=== PATIENT | female | born 2000 | race Caucasian/White ===

== ENCOUNTER 2022-05-01 10:07 | Emergency (ER) | payer OTHER ==
[2022-05-01 10:24] VITALS: BP 110/65; PULSE 77; RESP 18; TEMP 97.9; BMI 22.8
[2022-05-01] MEDS ORDERED: IBUPROFEN 600 MG TABLET (FP) PO ONE ×2 (11:29→11:35)
[2022-05-01] MEDS ORDERED: FLUCONAZOLE 50 MG TABLET PO ONE (11:32)
[2022-05-01] MEDS ORDERED: FLUCONAZOLE 150 MG TABLET PO ONE (11:35)
== END 2022-05-01 11:42 | disposition home or self-care (01) ==
LOC: JER 10:07 → JERFT 10:07
DX: B37.3 Candidiasis of vulva and vagina (principal); K61.0 Anal abscess
CPT/HCPCS: 99283-25

== ENCOUNTER 2022-06-04 21:39 | Emergency (ER) | payer OTHER ==
[2022-06-04 21:47] VITALS: BP 118/81; PULSE 89; RESP 18; TEMP 98.5; BMI 30.1
== END 2022-06-05 00:17 | disposition home or self-care (01) ==
LOC: JER 21:39
DX: L03.011 Cellulitis of right finger (principal)
CPT/HCPCS: 99281-25

== ENCOUNTER 2022-10-27 19:34 | Emergency (ER) | payer OTHER ==
[2022-10-27 19:46] VITALS: BP 108/71; PULSE 88; RESP 18; TEMP 98.4; BMI 30.1
[2022-10-27] MEDS ORDERED: CEPHALEXIN MONOHYDRATE 500 MG CAPSULE (UD) PO ONE (21:41)
[2022-10-27] MEDS ORDERED: CEPHALEXIN MONOHYDRATE 500 MG CAPSULE (UD) ONE (21:42)
== END 2022-10-27 21:44 | disposition home or self-care (01) ==
LOC: JERFT 19:34 → JER 19:34 → JERFT 21:44
PROC: 0H9GXZZ Drainage of Left Hand Skin, External Approach (ICD-10-PCS; principal; 2022-10-27)
DX: L03.312 Cellulitis of back [any part except buttock and flank] (principal)
CPT/HCPCS: 99283-25

== ENCOUNTER 2023-08-24 04:49 | Emergency (ER) | payer OTHER ==
[2023-08-24 05:05] VITALS: RESP 20; TEMP 97.6; BMI 30.1
[2023-08-24 09:41] LABS: BASO % 0.6 % (0-2.0); EOS % 0.1 % (0-4.5); HEMATOCRIT 40.6 % (32.4-45.2); HEMOGLOBIN 13.8 GM/dL (10.7-15.3); LYMPH % 12.3 % (8-40); MCH 29.6 pg (25.7-33.7); MCHC 34.1 g/dl (32.0-36.0); MEAN CELL VOLUME 86.9 fl (80-96); MEAN PLT VOLUME 7.6 fl (7.5-11.1); PLATELET COUNT 485 10^3/uL (134-434); RBC 4.68 M/mm3 (3.60-5.2); RDW 12.8 % (11.6-15.6); WHITE BLOOD COUNT 16.6 K/mm3 (4.0-10.0)
[2023-08-24 09:48] LABS: VENOUS BASE EXCESS -1.6 mmol/L (-2-2); VENOUS O2 SATURATION 67.5 % (70-80); VENOUS PCO2 49.9 mmHg (38-52); VENOUS PH 7.319 (7.310-7.410)
[2023-08-24 09:51] LABS: EPI CELLS >36 /uL (0-25.1); HYALINE CASTS 2 /uL (0-3.1); PH,URINE 5.5 (5.0-8.0); URINE APPEARANCE CLOUDY; URINE BACTERIA 2772 /uL (0-1359); URINE BILIRUBIN NEGATIVE (NEGATIVE); URINE COLOR YELLOW; URINE GLUCOSE (UA) 3+ (NEGATIVE); URINE KETONE TRACE (NEGATIVE); URINE LEUK ESTERASE 2+ (NEGATIVE); URINE NITRITE NEGATIVE (NEGATIVE); URINE PROTEIN TRACE (NEGATIVE); URINE RBC 146 /uL (0-23.9); URINE UROBILINOGEN 0.2 mg/dL (0.2-1.0); URINE WBC 406 /uL (0-25.8)
[2023-08-24 09:52] LABS: POTASSIUM 3.3 mmol/L (3.5-5.1)
[2023-08-24 09:56] LABS: ALBUMIN 3.8 g/dl (3.4-5.0); BLOOD UREA NITROGEN 15.5 mg/dL (7-18)
[2023-08-24 09:59] LABS: CREATININE 0.6 mg/dL (0.55-1.3)
[2023-08-24] MEDS ORDERED: FLUCONAZOLE 50 MG TABLET PO ONE (10:00)
[2023-08-24 10:01] LABS: BILIRUBIN,TOTAL 0.4 mg/dL (0.2-1); CALCIUM 9.7 mg/dL (8.5-10.1)
[2023-08-24] MEDS ORDERED: FLUCONAZOLE 150 MG TABLET PO ONE (11:01)
[2023-08-24] MEDS ORDERED: CEFTRIAXONE 1 GM in DEXTROSE 5%-WATER - 100 ML IVPB ONE (11:35)
[2023-08-24] MEDS ORDERED: CEFTRIAXONE 1 GM/50 ML BAG ONE (11:51)
[2023-08-24 12:12] LABS: HIV INTERPRETATION NEGATIVE (NEGATIVE)
[2023-08-24 15:02] VITALS: BP 118/78; PULSE 96
== END 2023-08-24 14:58 | disposition home or self-care (01) ==
LOC: JER 04:49
DX: R20.0 Anesthesia of skin (principal); R20.2 Paresthesia of skin; E11.9 Type 2 diabetes mellitus without complications
CPT/HCPCS: 36415; 80053; 81003; 82010; 82803; 82962; 85025; 86705; 86707; 86780; 87070; 87077; 87086; 87205; 87350; 87389; 87491; 87517; 87591; 87661; 99284-25

== ENCOUNTER 2023-10-18 13:05 | Emergency (ER) | payer OTHER ==
[2023-10-18 13:12] VITALS: BP 107/66; PULSE 96; RESP 18; TEMP 98.9; BMI 31.5
[2023-10-18] MEDS ORDERED: IBUPROFEN 600 MG TABLET (FP) PO ONE (16:19)
[2023-10-18] MEDS ORDERED: CLINDAMYCIN HCL 150 MG CAPSULE (FP) ONE (16:19)
[2023-10-18] MEDS: CLINDAMYCIN HCL 300 MG CAPSULE PO ONE (16:26)
[2023-10-18] MEDS: IBUPROFEN 600 MG TABLET (FP) PO ONE (16:26)
== END 2023-10-18 17:05 | disposition home or self-care (01) ==
LOC: JERFT 13:05
PROC: 0U9MX0Z Drainage of Vulva with Drainage Device, External Approach (ICD-10-PCS; principal; 2023-10-18)
DX: N75.0 Cyst of Bartholin's gland (principal)
CPT/HCPCS: 56420; 99283-25

== ENCOUNTER 2023-11-02 20:55 | Emergency (ER) | payer OTHER ==
[2023-11-02 21:11] VITALS: BP 104/67; PULSE 93; RESP 19; TEMP 98.4; BMI 31.5
== END 2023-11-02 22:51 | disposition home or self-care (01) ==
LOC: JER 20:55
DX: K62.89 Other specified diseases of anus and rectum (principal); K62.5 Hemorrhage of anus and rectum
CPT/HCPCS: 99283-25

== ENCOUNTER 2024-05-04 15:22 | Emergency (ER) | payer OTHER ==
[2024-05-04 15:33] VITALS: BP 98/80; PULSE 90; RESP 19; TEMP 98.7; BMI 30.2
[2024-05-04] MEDS: SODIUM CHLORIDE 0.9% 500 ML INFUS.BAG IV ONE (17:36)
[2024-05-04] MEDS ORDERED: LIDOCAINE 2.5%/PRILOCAINE 2.5% (5 Gram/TUBE) TP ONE (17:38)
[2024-05-04] MEDS: LIDOCAINE 2.5%/PRILOCAINE 2.5% 30 GRAM TUBE TP ONE (17:39)
[2024-05-04] MEDS ORDERED: morphine SULFATE 4 MG/ML VIAL ONE (17:50)
[2024-05-04 18:00] LABS: EPI CELLS >36 /uL (0-25.1); HYALINE CASTS 1 /uL (0-3.1); PH,URINE 5.5 (5.0-8.0); URINE APPEARANCE CLOUDY; URINE BACTERIA 4575 /uL (0-1359); URINE BILIRUBIN NEGATIVE (NEGATIVE); URINE COLOR YELLOW; URINE GLUCOSE (UA) 3+ (NEGATIVE); URINE KETONE 1+ (NEGATIVE); URINE LEUK ESTERASE 2+ (NEGATIVE); URINE NITRITE NEGATIVE (NEGATIVE); URINE PROTEIN NEGATIVE (NEGATIVE); URINE RBC 30 /uL (0-23.9); URINE UROBILINOGEN 0.2 mg/dL (0.2-1.0); URINE WBC 851 /uL (0-25.8)
[2024-05-04] MEDS: morphine CARPU-JECT 4 MG/1 ML DISP.SYRIN IVPUSH ONE (18:05)
[2024-05-04] MEDS ORDERED: ACETAMINOPHEN INJECTION 100 ML ONE (19:37)
[2024-05-04] MEDS: ACETAMINOPHEN 1000 MG/100 ML BAG IVPB ONE (19:51)
== END 2024-05-04 20:30 | disposition home or self-care (01) ==
LOC: JER 15:22 → JERFT 15:22
PROC: 0U9LX0Z Drainage of Vestibular Gland with Drainage Device, External Approach (ICD-10-PCS; principal; 2024-05-04)
PROC: 3E033NZ Introduction of Analgesics, Hypnotics, Sedatives into Peripheral Vein, Percutaneous Approach (ICD-10-PCS; 2024-05-04)
PROC: 3E033NZ Introduction of Analgesics, Hypnotics, Sedatives into Peripheral Vein, Percutaneous Approach (ICD-10-PCS; 2024-05-04)
DX: N75.0 Cyst of Bartholin's gland (principal)
CPT/HCPCS: 81003; 82962; 87077; 87086; 99284-25; J0131